=== PATIENT | female | born 2000 | race Caucasian/White ===

== ENCOUNTER 2022-07-04 11:47 | Inpatient (IN) | payer BC, SELFPAY ==
[2022-07-04] VITALS (27 sets, daily range): BP systolic 129–173; BP diastolic 65–101; PULSE 59–99; TEMP 36.6–36.7; O2SAT 97–99; BMI 31.8
[2022-07-04 12:44] LABS: Basophils Absolute Auto 0.02 K/uL (0.00-0.30); Basophils Percent Auto 0.2 % (0.0-3.0); Eosinophils Absolute Auto 0.02 K/uL (0.00-0.50); Eosinophils Percent Auto 0.2 % (0.0-7.0); Hematocrit 32.5 % (33.0-51.0); Hemoglobin* 10.8 gm/dL (12.0-16.0); Immature Granulocytes Abs Auto 0.02 K/uL (0.00-0.30); Immature Granulocytes Pct Auto 0.2 %; Lymphocytes Percent Auto 19.9 % (20-44); Mean Corpuscular HGB Conc 33 gm/dL (32-36); Mean Corpuscular Hemoglobin 30 pg (26-34); Mean Corpuscular Volume 91 fL (80-100); Monocytes Percent Auto 7.6 % (0.0-11.0); Neutrophils Absolute Auto 6.22 K/uL (1.7-7.0); Neutrophils Percent Auto 71.9 % (42.0-72.0); Platelet Count* 180 K/uL (140-440); Red Blood Count 3.58 m/uL (4.00-5.20); Slide Review Reflex No; White Blood Count* 8.66 K/uL (4.50-11.00)
[2022-07-04 13:05] LABS: Creatinine* 0.6 mg/dL (0.5-1.5); Est. Creatinine Clearance* 112.86; Estimated Glomerular Filt Rate 132 ml/min
[2022-07-04 13:06] LABS: Alanine Aminotransferase* 73 U/L (4-35); Aspartate Amino Transferase* 61 U/L (12-35); Blood Urea Nitrogen* 11 mg/dL (5-24); Magnesium* 1.7 mg/dL (1.5-2.6)
[2022-07-04 13:08] LABS: INR 0.99 (0.91-1.10); Prothrombin Time 13.6 Seconds
[2022-07-04 13:09] LABS: Fibrinogen* 495 mg/dL (200-450)
[2022-07-04 13:43] LABS: SARS PCR* Negative SARS-CoV-2 (Negative)
[2022-07-04 14:11] LABS: Creatinine Urine 67.4 mg/dL
[2022-07-04 14:19] LABS: Total Protein Urine 239 mg/dL
[2022-07-04] MEDS: miSOPROStoL 25 MCG/0.25 TABLET VAGINAL ×4 (14:42→23:36)
[2022-07-04] MEDS: LACTATED RINGERS 1000 ML 1,000 ML 75 ML IV (16:44)
[2022-07-04] MEDS: ACETAMINOPHEN 500 MG TABLET 1000 MG PO (17:51)
[2022-07-04 18:38] LABS: Mean Corpuscular HGB Conc 33 gm/dL (32-36); Mean Corpuscular Hemoglobin 30 pg (26-34); Mean Corpuscular Volume 91 fL (80-100); Platelet Count* 188 K/uL (140-440); Red Blood Count 3.62 m/uL (4.00-5.20); White Blood Count* 10.06 K/uL (4.50-11.00)
[2022-07-04 18:40] LABS: Slide Review Reflex No
[2022-07-04 18:53] LABS: Alanine Aminotransferase* 68 U/L (4-35); Aspartate Amino Transferase* 55 U/L (12-35); Blood Urea Nitrogen* 10 mg/dL (5-24); Creatinine* 0.6 mg/dL (0.5-1.5); Est. Creatinine Clearance* 112.86; Estimated Glomerular Filt Rate 132 ml/min
--- NOTE | 2022-07-04 19:14 | P.OBHP_ITS ---
OB - H&P: HPI Labor/Induction History of Present Illness Time Seen by Provider: 19:14 Date Seen: 07/04/22 Chief Complaint: The patient is a 22 year old 2 para 0 at 37w4d gestation by 6wk US not c/w LMP, who was seen in clinic today for routine visit and found to have elevated bp's of 150/110 and 150/106. She was sent to L&D for labs/monitoring and induction. Chief complaint: Maternity : 2 Para: 0 Indications for induction: pre-eclampsia Narrative: Nisha Neves is a 22 year old 2 para 0 at 37w4d gestation by 6wk US not c/w LMP, who was seen in clinic today for routine visit and found to have elevated bp's of 150/110 and 150/106. She did not have headache, vision changes, RUQ pain in clinic. she did report headache yesterday that resolved with water, Tylenol and sleep. OB urine test was +100 protein. She was sent to L&D for labs/monitoring and induction. No ctxs. No bleeding. Good FM. She did not sore throat and cold sxs for last couple weeks, not getting worse. no fevers. No trouble breathing. notes feeling tired. In clinic today, bedside handheld US confirmed cephalic position. Cervix in clinic anterior, closed and thick. History of Present Dating criteria: based on 1st trimester US only care: good care Ultrasounds: normal mid trimester US complications: preeclampsia (diagnosed today) complications comment: +chlamydia 01/17/2022, LENA negative Labs Blood type: O (+) positive Rubella: nonimmune RPR/VDLR: nonreactive GBS status: negative HBsAG: negative Meds Home Medications and Allergies Home Medications Medication Instructions Recorded Confirmed Type Vitamin 07/04/22 History ferrous sulfate 325 mg (65 mg 325 mg PO DAILY 07/04/22 07/04/22 History iron) tablet,delayed release fluticasone propionate 50 2 spray intranasal DAILY 07/04/22 07/04/22 History mcg/actuation nasal spray,suspension OB - H&P: Exam Physical Exam: Vital signs: Temp Pulse BP Pulse Ox 97.9 F 87 137/77 99 07/04/22 15:46 07/04/22 18:28 07/04/22 18:28 07/04/22 19:05 Constitutional: Constitutional: no acute distress and cooperative Routine HEENT Exam: Head: Present normal inspection Eye: Present normal appearance Routine Neck Exam: Neck: Present normal inspection; Absent lymphadenopathy Detailed Neck Exam: Thyroids: Thyroid: Present normal Routine Respiratory Exam: Respiratory: Present CTA bilaterally Routine Cardiovascular Exam: Cardiovascular: RRR Routine Abdominal Exam: Comments: FH c/w dates, nttp Detailed Labor and Delivery Exam: Patient Gravid: Yes Fetus (Single): Heart Rate Baseline: 110 Monitor Accelerations: Present Monitor Decelerations: None Senior [employer] Variability: Moderate (6-25) Routine Extremities Exam: Extremities: Absent pedal edema Routine Psychiatric Exam: Present normal affect OB - Results Labs Labs: Short CBC 07/04/22 07/04/22 Range/Units 12:32 18:33 WBC 8.66 10.06 (4.50-11.00) K/uL Hgb 10.8 L 11.0 L (12.0-16.0) gm/dL Hct 32.5 L 33.0 (33.0-51.0) % Plt Count 180 188 (140-440) K/uL BMP 07/04/22 12:32 BUN 11 Creatinine 0.6 Liver Function 07/04/22 Range/Units 12:32 AST 61 H (12-35) U/L ALT 73 H (4-35) U/L OB - Problem Based A/P Additional Plan (1) Severe preeclampsia: Status: Acute (2) Term : Status: Acute Plan 1. pt meets criteria for severe preeclampsia with BP here 170/101 (repeat BP below IV BP med treatment) and elevated LFT's. started on magnesium. 2. q6hour labs. 3. Discussed in clinic and again here reasons for induction, various methods of induction variation of induction course 4. Cytotec induction per protocol. All ?'s answered. 5. GBS negative. Delivery/Labor/Induction Plan Plan: induction Induction method: per misoprostol protocol
[2022-07-04 19:15] LABS: Magnesium* 4.4 mg/dL (1.5-2.6)
[2022-07-04] MEDS: MORPHINE 10 MG/ML inj IM (23:21)
[2022-07-04] MEDS: hydrOXYzine pamoate 25 MG CAPSULE 100 MG PO (23:21)
[2022-07-05] VITALS (100 sets, daily range): BP systolic 104–177; BP diastolic 60–102; PULSE 56–92; RESP 16–18; TEMP 35.9–36.7; O2SAT 95–100
[2022-07-05 00:30] LABS: Hematocrit 33.1 % (33.0-51.0); Hemoglobin* 10.9 gm/dL (12.0-16.0); Mean Corpuscular HGB Conc 33 gm/dL (32-36); Mean Corpuscular Hemoglobin 30 pg (26-34); Mean Corpuscular Volume 91 fL (80-100); Platelet Count* 190 K/uL (140-440); Red Blood Count 3.62 m/uL (4.00-5.20); White Blood Count* 10.18 K/uL (4.50-11.00)
[2022-07-05 00:34] LABS: Slide Review Reflex No
[2022-07-05 00:47] LABS: INR 0.94 (0.91-1.10); Prothrombin Time 13.2 Seconds
[2022-07-05 00:48] LABS: Aspartate Amino Transferase* 53 U/L (12-35); Blood Urea Nitrogen* 10 mg/dL (5-24); Creatinine* 0.6 mg/dL (0.5-1.5); Est. Creatinine Clearance* 112.86; Estimated Glomerular Filt Rate 132 ml/min; Fibrinogen* 493 mg/dL (200-450)
[2022-07-05 00:49] LABS: Alanine Aminotransferase* 69 U/L (4-35)
[2022-07-05] MEDS: miSOPROStoL 25 MCG/0.25 TABLET VAGINAL (02:36)
[2022-07-05] MEDS: LACTATED RINGERS 1000 ML 1,000 ML 250 ML IV (04:10)
[2022-07-05] MEDS: ONDANSETRON 2 MG/ML inj 4 MG IV (06:03)
[2022-07-05 07:07] LABS: Hematocrit 34.8 % (33.0-51.0); Hemoglobin* 11.5 gm/dL (12.0-16.0); Mean Corpuscular HGB Conc 33 gm/dL (32-36); Mean Corpuscular Hemoglobin 30 pg (26-34); Mean Corpuscular Volume 91 fL (80-100); Platelet Count* 189 K/uL (140-440); Red Blood Count 3.83 m/uL (4.00-5.20); White Blood Count* 12.36 K/uL (4.50-11.00)
[2022-07-05 07:18] LABS: INR 0.93 (0.91-1.10)
[2022-07-05 07:19] LABS: Fibrinogen* 495 mg/dL (200-450)
[2022-07-05 07:22] LABS: Slide Review Reflex No
[2022-07-05 07:28] LABS: Creatinine* 0.6 mg/dL (0.5-1.5); Est. Creatinine Clearance* 112.86; Estimated Glomerular Filt Rate 132 ml/min
[2022-07-05 07:29] LABS: Alanine Aminotransferase* 65 U/L (4-35); Aspartate Amino Transferase* 57 U/L (12-35); Blood Urea Nitrogen* 9 mg/dL (5-24)
[2022-07-05 07:48] LABS: Magnesium* 6.3 mg/dL (1.5-2.6)
[2022-07-05] MEDS: LACTATED RINGERS 1000 ML 1,000 ML 75 ML IV (09:01)
--- NOTE | 2022-07-05 10:40 | P.OBCN_ITS ---
OB - CN: HPI Date of Consult Date Seen: 07/05/22 Patient: Viet Patient Consult date: 07/05/22 Requesting Physician: Gabrielle Lange DO Primary Care Provider: Gabrielle Lange DO Consult Narrative Narrative: The patient is a 22 year old G 2 P 0 woman at 37 weeks, 5 days gestation that was admitted to the Center on 07/04/22 for induction of labor for severe preeclampsia. BP was markedly elevated once in clinic, and apparently at least once here on Center. In addition, ALT was twice the upper limit of normal. She has marked proteinuria on protein:creatinine. She was started on magnesium sulfate for seizure prophylaxis at around 3 PM yesterday. BPs have been stable / below severe range in recent history. HR baseline has been low since admission, ranging from 120 to 90 bpm. At the time of my consult at 7:30 AM, it was 95 bpm with moderate variability. Variability has ranged from moderate to minimal while on magnesium. At the time of my evaluation, heart rate is exhibiting accelerations. Decelerations have been absent. Other than severe preeclampsia, Nisha has had an uncomplicated . She is rubella non-immune. She has had a total of 5 doses of vaginal Cytotec for cervical ripening. Despite this, her cervix is closed and long. History of Present complications: preeclampsia (diagnosed today) complications comment: +chlamydia 01/17/2022, LENA negative History History 2 Elective abortions Para 0 Spontaneous abortions 1 Hx # Term Pregnancies Ectopic pregnancies Hx # Pregnancies Multiple births Number of Living Children 0 Labs Blood type: O (+) positive Rubella: nonimmune RPR/VDLR: nonreactive GBS status: negative HBsAG: negative OB Labs: Lab Assessment Start: 07/04/22 11:54 Freq: ONCE Status: Complete Protocol: PC.OBGBS Activity Type Activity Date Activity User E-sign Co-sign Detail Recorded Client Recorded Date Recorded By Document 07/04/22 12:00 [facility] [id number] 07/04/22 16:01 [facility] 07/04/22 12:00 Lab Assessment GBS neg Previous with Invasive GBS No Does Patient Meet Criteria No No Treatment Needed OK Maternal Blood Type O Maternal RH Factor Positive Evaluate Maternal Rubella Immune Status Non-Immune Hepatitis B Surface Antigen Negative Maternal HIV Status Negative Maternal Syphillis (RPR) Status Negative Are Labs Available Yes PFSH [facility] Medical History (Updated 07/04/22 @ 19:37 by Gabrielle Lange, DO) ADHD ?F90.9 - Attention-deficit hyperactivity disorder, unspecified type (ICD-10) Anxiety and depression ?F41.9 - Anxiety disorder, unspecified (ICD-10) ?F32.A - Depression, unspecified (ICD-10) Surgical History (Updated 07/04/22 @ 19:30 by Gabrielle Lange, ) No pertinent past surgical history ?Z78.9 - Other specified health status (ICD-10) Social History Smoking Status: Former smoker Meds Home Medications and Allergies Home Medications Medication Instructions Recorded Confirmed Type Vitamin 07/04/22 History ferrous sulfate 325 mg (65 mg 325 mg PO DAILY 07/04/22 07/05/22 History iron) tablet,delayed release fluticasone propionate 50 2 spray intranasal DAILY 07/04/22 07/05/22 History mcg/actuation nasal spray,suspension Allergies Allergy/AdvReac Type Severity Reaction Status Date / Time Penicillins Allergy Verified 07/05/22 00:21 Amoxicillin Allergy Uncoded 07/05/22 00:21 OB - H&P: Exam Physical Exam: Vital signs: Temp Pulse Resp BP Pulse Ox 98.1 F 76 16 147/81 H 99 07/05/22 10:24 07/05/22 10:39 07/05/22 10:24 07/05/22 10:39 07/05/22 10:39 Narrative: Physical exam: Vitals as noted above. General: No acute distress Psych: Alert and oriented x 3, full affect HEENT: Normocephalic, atraumatic Abdomen: Soft, nontender, gravid, cephalic lie OB - Results Labs Labs: Short CBC 07/04/22 07/04/22 07/05/22 Range/Units 12:32 18:33 00:25 WBC 8.66 10.06 10.18 (4.50-11.00) K/uL Hgb 10.8 L 11.0 L 10.9 L (12.0-16.0) gm/dL Hct 32.5 L 33.0 33.1 (33.0-51.0) % Plt Count 180 188 190 (140-440) K/uL 07/05/22 Range/Units 06:45 WBC 12.36 H (4.50-11.00) K/uL Hgb 11.5 L (12.0-16.0) gm/dL Hct 34.8 (33.0-51.0) % Plt Count 189 (140-440) K/uL BMP 07/04/22 07/04/22 07/05/22 12:32 18:33 00:25 BUN 11 10 10 Creatinine 0.6 0.6 0.6 07/05/22 06:45 BUN 9 Creatinine 0.6 Liver Function 07/04/22 07/04/22 07/05/22 Range/Units 12:32 18:33 00:25 AST 61 H 55 H 53 H (12-35) U/L ALT 73 H 68 H 69 H (4-35) U/L 07/05/22 Range/Units 06:45 AST 57 H (12-35) U/L ALT 65 H (4-35) U/L OB - CN: A/P Assessment and Plan (1) Severe preeclampsia: Status: Acute (2) Term : Status: Acute Plan Failed induction of labor. baseline low at initiation of induction, with periods of nonreassuring status. Severe preeclampsia, remote from delivery. Given these factors, I have very recommended primary low transverse delivery. Patient accepts this plan. We discussed risks of procedure, including bleeding and hemorrhage, infection, damage to internal organs, and effects on future pregnancies. Consent form was reviewed with and signed by patient. She will have cefazolin and azithromycin for preoperative prophylaxis. She will have magnesium continued for 24 hours . I will be quick to treat for uterine atony with misoprostol or Hemabate, and will consider prophylactic tranexamic acid as well.
[2022-07-05] MEDS: CEFAZOLIN 2 GM INJ IVP (11:11)
[2022-07-05] MEDS: AZITHROMYCIN 500 MG in 0.9 % SODIUM CHLORIDE 250 ml 250 ML 255 MG IVPB (11:56)
[2022-07-05] MEDS: KETOROLAC 30 MG/ML inj IVP ×2 (12:40→18:46)
--- NOTE | 2022-07-05 12:53 | W.ANESCHARGE ---
Anesthesia Charges Start Date/Time Anesthesia Start Date: 07/05/22 Anesthesia Start Time: 11:01 Stop Date/Time Anesthesia Stop Date: 07/05/22 Anesthesia Stop Time: 12:35
--- NOTE | 2022-07-05 12:54 | W.PM.NB ---
Nerve Block Nerve Block Time Seen by Provider: 12:25 Date Seen: 07/05/22 Type of block requested by surgeon for post-operative analgesia: TAP Side: bilateral Time out performed: Yes Verification of patient name: Yes Verification of date of : Yes Site marking: site marked Name of person performing procedure: Matthew Solis Continuous monitoring Was continuous monitoring of O2 sat, B/P, media monitor, recorded every 15 minutes?: Yes Procedure Checklist: sterile prep, needles and gloves Ultrasound guided. Images saved: Yes Medications given in 5ml increments after negative aspiration: Marcaine %: 0.25 mL: 30 Needle gauge: 20 and Exparel mL: 10 Needle gauge: 20 Patient tolerated procedure well: Yes
[2022-07-05 13:45] LABS: Hematocrit 31.6 % (33.0-51.0); Hemoglobin* 10.6 gm/dL (12.0-16.0); Mean Corpuscular HGB Conc 34 gm/dL (32-36); Mean Corpuscular Hemoglobin 31 pg (26-34); Mean Corpuscular Volume 91 fL (80-100); Platelet Count* 183 K/uL (140-440); Red Blood Count 3.47 m/uL (4.00-5.20); White Blood Count* 17.17 K/uL (4.50-11.00)
[2022-07-05 13:49] LABS: Slide Review Reflex No
[2022-07-05 13:50] LABS: Fibrinogen* 443 mg/dL (200-450); INR 0.96 (0.91-1.10); Prothrombin Time 13.3 Seconds
[2022-07-05 13:52] LABS: Alanine Aminotransferase* 59 U/L (4-35); Aspartate Amino Transferase* 52 U/L (12-35); Blood Urea Nitrogen* 8 mg/dL (5-24); Creatinine* 0.6 mg/dL (0.5-1.5); Est. Creatinine Clearance* 112.86; Estimated Glomerular Filt Rate 132 ml/min
--- NOTE | 2022-07-05 14:32 | PM.OBPRCCS ---
Procedure Pre-op/Post-op diagnoses: Pre-Op/Post-Op Diagnoses Operation Date: 07/05/22 10:30 <No data on this case meets the specified criteria> Procedure Done: only Procedure Details: Procedures Operation Date: 07/05/22 10:30 Actual Procedure Side Surgeon p Section Holly Bajwa MD Narrative: PREOPERATIVE DIAGNOSIS: 37 weeks, 5 days gestation Severe preeclampsia Failed induction of labor Nonreassuring heart tracing, remote from delivery POSTOPERATIVE DIAGNOSIS: Same PROCEDURE: Primary low-transverse section SURGEON: Holly Bajwa MD ANESTHESIA: Spinal IV FLUIDS: 1500 mL crystalloid QBL: 447 mL FINDINGS: 1. Male infant, cephalic OA presentation, Apgars of 8 and 9, weight appropriate for gestational age 2. Normal appearance to uterus, bilateral tubes and ovaries. COMPLICATIONS: None PROCEDURE IN DETAIL: Patient was taken to the operating room with IV running. She received cefazolin and azithromycin in preoperative prophylaxis. Spinal anesthesia was administered. Marino catheter was inserted. She was prepped and draped in the usual sterile fashion. A low-transverse skin incision was made with a scalpel and carried through to the underlying layer of fascia with the scalpel. The fascia was nicked in the midline with a scalpel, and this incision was extended laterally with scissors. The rectus muscles were in the midline. Peritoneum was identified and entered bluntly. Bovie was used to widen this opening. Harsh O retractor was inserted and tightened down, providing excellent visualization of the lower uterine segment. The bladder reflection was found to be well below the planned site for hysterotomy. Low-transverse uterine incision was made with a scalpel. Incision was widened bluntly. The 's head was grasped through the hysterotomy. After several attempts to deliver the 's head, the Harsh O retractor was removed, and delivery of the head was then accomplished. The remainder of the body delivered without incident. Cord was clamped and cut after 30 seconds. was handed off to attending nurses and Dr. Cox. The placenta was delivered with gentle traction on the cord. The uterus was cleaned of all clots and debris with the dry lap pad. The uterus was exteriorized. The hysterotomy was reapproximated with 0 Vicryl in a running, locked fashion. Second layer of the same suture was used in imbricating fashion to obtain hemostasis. The adnexa were examined and noted to be normal in appearance. The uterus was returned to the abdomen. The cul-de-sac and gutters were cleansed with dampened laparotomy sponge, removing any further clots and debris. The hysterotomy was reexamined and found to be hemostatic. The peritoneum was reapproximated with 2 0 Vicryl in a running fashion. The rectus muscles were examined and found to be hemostatic. The fascia was reapproximated with 0 Vicryl in a running fashion. Subcutaneous fat was irrigated and Bovie used on oozing vessels. The subcutaneous fat was reapproximated with 2 0 plain gut suture in an interrupted fashion. The skin was closed with a subcuticular stitch of 4-0 Monocryl. Surgical glue was applied above this. Patient tolerated procedure well was taken to recovery area in stable condition.
[2022-07-05] MEDS: ACETAMINOPHEN 500 MG TABLET 1000 MG PO (17:28)
[2022-07-05] MEDS: diphenhydrAMINE 50 MG/ML inj 12.5 MG IVP (17:31)
[2022-07-05 19:44] LABS: Hematocrit 27.1 % (33.0-51.0); Hemoglobin* 9.1 gm/dL (12.0-16.0); Mean Corpuscular HGB Conc 34 gm/dL (32-36); Mean Corpuscular Hemoglobin 31 pg (26-34); Mean Corpuscular Volume 92 fL (80-100); Platelet Count* 165 K/uL (140-440); Red Blood Count 2.95 m/uL (4.00-5.20); White Blood Count* 14.36 K/uL (4.50-11.00)
[2022-07-05 19:46] LABS: Slide Review Reflex No
[2022-07-05 19:59] LABS: Alanine Aminotransferase* 49 U/L (4-35); Aspartate Amino Transferase* 50 U/L (12-35); Blood Urea Nitrogen* 8 mg/dL (5-24); Creatinine* 0.7 mg/dL (0.5-1.5); Est. Creatinine Clearance* 96.74; Estimated Glomerular Filt Rate 127 ml/min
--- NOTE | 2022-07-05 20:14 | P.OBPN_ITS ---
Subjective Time Seen by Provider: 20:14 Date Seen: 07/05/22 Objective Vital Signs: Last Vital Signs Temp 97.4 F L 07/05/22 16:45 Pulse 79 07/05/22 16:45 Resp 16 07/05/22 17:00 BP 125/85 07/05/22 16:45 Pulse Ox 97 07/05/22 16:45 O2 Del Method Room Air 07/05/22 16:45 Pelvic Exam Dilation (cm): 0 Effacement (%): 0 Contractions Monitor mode: External Contraction Frequency: irregular Contraction pattern: Irregular Contraction intensity: Mild Assessment Assessment: induction ongoing Station: -3 Heart Rate Baseline: 90 Penitentiary Variability: Minimal (3-5) Monitor Accelerations: Present Monitor Decelerations: None Labor Progress: Patient received cytotec overnight. Unfortunately, made no cervical change (closed, thick, high). Cervidil was not available in hospital and I was unable to place cook catheter given cervix closed. heart tones had low baseline throughout IOL (90-110). Unfortunately, we lost variability after Magnesium, morphine, vistaril. FHT had occasional accels. Magnesium level checked and appropriate. Plan Plan: - Discussed patient's case with Dr. Bajwa. She agrees heart tracing not reassuring enough to continue (and limited induction options given no cervidil in house and unable to place cook catheter). Will proceed with . Please see Dr. Bajwa's consult and procedure note for details.
[2022-07-06] VITALS (11 sets, daily range): BP systolic 116–136; BP diastolic 71–84; PULSE 59–74; RESP 16; TEMP 36.6–36.9; O2SAT 95–98
[2022-07-06] MEDS: KETOROLAC 30 MG/ML inj IVP ×4 (00:39→19:08)
[2022-07-06 01:41] LABS: Hematocrit 26.8 % (33.0-51.0); Mean Corpuscular HGB Conc 34 gm/dL (32-36); Mean Corpuscular Hemoglobin 31 pg (26-34); Mean Corpuscular Volume 91 fL (80-100); Platelet Count* 164 K/uL (140-440); Red Blood Count 2.94 m/uL (4.00-5.20); White Blood Count* 10.67 K/uL (4.50-11.00)
[2022-07-06 01:42] LABS: Slide Review Reflex No
[2022-07-06 01:59] LABS: Alanine Aminotransferase* 48 U/L (4-35); Aspartate Amino Transferase* 47 U/L (12-35); Blood Urea Nitrogen* 7 mg/dL (5-24); Creatinine* 0.7 mg/dL (0.5-1.5); Est. Creatinine Clearance* 96.74; Estimated Glomerular Filt Rate 127 ml/min
[2022-07-06 07:51] LABS: Mean Corpuscular HGB Conc 33 gm/dL (32-36); Mean Corpuscular Hemoglobin 30 pg (26-34); Mean Corpuscular Volume 91 fL (80-100); Platelet Count* 173 K/uL (140-440); Red Blood Count 2.96 m/uL (4.00-5.20); White Blood Count* 9.88 K/uL (4.50-11.00)
[2022-07-06 08:07] LABS: Alanine Aminotransferase* 45 U/L (4-35); Aspartate Amino Transferase* 48 U/L (12-35); Blood Urea Nitrogen* 8 mg/dL (5-24); Creatinine* 0.8 mg/dL (0.5-1.5); Est. Creatinine Clearance* 84.65; Estimated Glomerular Filt Rate 108 ml/min
[2022-07-06 08:18] LABS: Slide Review Reflex No
[2022-07-06] MEDS: ACETAMINOPHEN 500 MG TABLET 1000 MG PO ×2 (09:28→15:46)
[2022-07-06] MEDS: FERROUS SULFATE 325 MG TABLET PO (09:28)
--- NOTE | 2022-07-06 09:43 | PM.OBPNCS1 ---
OB - PN: A/P Assessment and Plan (1) Severe preeclampsia: Problem details: Labs improving Status: Acute (2) Status post primary low transverse section: Status: Acute Plan 1. Will recheck labs tomorrow morning. 2. Mag to be discontinued later this morning. 3. Continue close monitoring of BP. 4. Stop fluid restriction. Plan day: 1 Plan: routine postop care OB - PN: Subj Subjective Date Seen: 07/06/22 Interval history: The patient is feeling little better this morning. She had been dizzy when trying to sit up earlier this morning, and this caused her to feel somewhat nauseous. She has incisional pain only when she is trying to move around. Lochia is normal. Magnesium sulfate infusion is due to come off at about 11:30 this morning. OB - PN: Obj Exam Physical Exam: Vital signs: Temp Pulse Resp BP Pulse Ox O2 Del Method 98.1 F 62 16 133/82 96 Room Air 07/06/22 04:49 07/06/22 04:49 07/06/22 09:00 07/06/22 04:49 07/06/22 04:49 07/06/22 04:49 Constitutional: Constitutional: no acute distress Routine HEENT Exam: Head: Present normal inspection Routine Respiratory Exam: Respiratory: Absent respiratory distress Routine Cardiovascular Exam: Cardiovascular: Present RRR Routine Abdominal Exam: Abdominal: Present soft; Absent tenderness Fundus: Present firm Comments: Incision clean, dry, intact. Routine Extremities Exam: Extremities: Present normal inspection Routine Neurological Exam: Neurological: Present alert and oriented X3 Routine Psychiatric Exam: Psychiatric: Present normal affect Urinary Catheter Management: Urethral: Cath placed during this visit: yes Urethral indwelling: Yes Reason for continuing: surgical procedure Insertion date: 07/05/22 Insertion time: 11:20 OB - PN: Obj Data Labs Labs: Laboratory Results - last 24 hr 07/05/22 07/05/22 07/06/22 13:25 19:39 01:35 WBC 17.17 H 14.36 H 10.67 RBC 3.47 L 2.95 L 2.94 L Hgb 10.6 L 9.1 L 9.0 L Hct 31.6 L 27.1 L 26.8 L MCV 91 92 91 MCH 31 31 31 MCHC 34 34 34 Plt Count 183 165 164 INR 0.96 Fibrinogen 443 BUN 8 8 7 Creatinine 0.6 0.7 0.7 Estimated Creat Clear 112.86 96.74 96.74 Estimated GFR 132 127 127 AST 52 H 50 H 47 H ALT 59 H 49 H 48 H 07/06/22 07:20 WBC 9.88 RBC 2.96 L Hgb 9.0 L Hct 27.0 L MCV 91 MCH 30 MCHC 33 Plt Count 173 INR Fibrinogen BUN 8 Creatinine 0.8 Estimated Creat Clear 84.65 Estimated GFR 108 AST 48 H ALT 45 H
[2022-07-06] MEDS: OXYCODONE 5 MG TABLET PO ×2 (11:27→21:31)
[2022-07-06] MEDS: SIMETHICONE 80 MG TAB.CHEW PO (11:33)
[2022-07-07 04:38] VITALS: BP 135/84; PULSE 70; RESP 16; TEMP 36.9; O2SAT 97
[2022-07-07] MEDS: MEASLES,MUMPS,RUBELLA VACC/PF 1 DOSE INJ 1 EACH SUBCUT (05:50)
[2022-07-07 07:33] LABS: Hematocrit 27.8 % (33.0-51.0); Hemoglobin* 9.2 gm/dL (12.0-16.0); Mean Corpuscular HGB Conc 33 gm/dL (32-36); Mean Corpuscular Hemoglobin 31 pg (26-34); Mean Corpuscular Volume 92 fL (80-100); Platelet Count* 187 K/uL (140-440); Red Blood Count 3.01 m/uL (4.00-5.20); Slide Review Reflex No
[2022-07-07 07:53] LABS: Aspartate Amino Transferase* 39 U/L (12-35); Creatinine* 0.7 mg/dL (0.5-1.5); Est. Creatinine Clearance* 96.74; Estimated Glomerular Filt Rate 127 ml/min
[2022-07-07 07:54] LABS: Alanine Aminotransferase* 37 U/L (4-35); Blood Urea Nitrogen* 10 mg/dL (5-24)
[2022-07-07] MEDS: ACETAMINOPHEN 500 MG TABLET 1000 MG PO ×2 (08:31→14:32)
[2022-07-07] MEDS: FERROUS SULFATE 325 MG TABLET PO (08:32)
[2022-07-07 09:15] VITALS: BP 129/68; PULSE 55; RESP 16; TEMP 36.8; O2SAT 97
--- NOTE | 2022-07-07 10:29 | P.OBPN_ITS ---
OB - PN: A/P Assessment and Plan (1) Severe preeclampsia: Problem details: Labs improving Status: Acute (2) Status post primary low transverse section: Status: Acute Plan day: 2 Plan: routine postop care Comments: 1. I anticipate that the patient will be ready for discharge tomorrow. We discussed activity restrictions and follow-up. 2. Continue close observation of blood pressures today. 3. Labs have almost return to normal, very mild elevation in ALT and AST yet today. Will stop following labs. OB - PN: Subj Subjective Date Seen: 07/07/22 Interval history: The patient feels better this morning. She is having a little more soreness in abdomen with moving around, but is not in pain while lying still. She is no longer dizzy or nauseous. She is bottle feeding, and has noticed a little bit of breast fullness this morning. Patient comments: flatus present [place] infant status: bottle OB - PN: Obj Exam Physical Exam: Vital signs: Temp Pulse Resp BP Pulse Ox O2 Del Method 98.2 F 55 L 16 129/68 97 Room Air 07/07/22 09:15 07/07/22 09:15 07/07/22 09:15 07/07/22 09:15 07/07/22 09:15 07/07/22 09:15 Constitutional: Constitutional: no acute distress Routine Abdominal Exam: Abdominal: Present soft; Absent tenderness Fundus: Present firm Routine Extremities Exam: Extremities: Present normal inspection and pedal edema; Absent calf tenderness Routine Neurological Exam: Neurological: Present alert and oriented X3 Routine Psychiatric Exam: Psychiatric: Present normal affect Wound Management: Method: suture Examination: Present clean, dry and intact; Absent erythematous Comments: Pfannenstiel incision Urinary Catheter Management: Urethral: Cath placed during this visit: yes, but has since been removed by the nurse Urethral indwelling: Yes Reason for continuing: surgical procedure Insertion date: 07/05/22 Insertion time: 11:20 Removal date: 07/06/22 Removal time: 14:35 OB - PN: Obj Data Labs Labs: Laboratory Results - last 24 hr 07/07/22 07:10 WBC 11.30 H RBC 3.01 L Hgb 9.2 L Hct 27.8 L MCV 92 MCH 31 MCHC 33 Plt Count 187 BUN 10 Creatinine 0.7 Estimated Creat Clear 96.74 Estimated GFR 127 AST 39 H ALT 37 H
[2022-07-07 12:50] VITALS: BP 128/84; PULSE 69; RESP 16; TEMP 36.9; O2SAT 96
[2022-07-07 16:15] VITALS: BP 117/72; PULSE 66; RESP 16; TEMP 36.8; O2SAT 95
[2022-07-07] MEDS: IBUPROFEN 600 MG TABLET PO (17:41)
[2022-07-07 21:16] VITALS: BP 138/80
[2022-07-08 00:07] VITALS: BP 84/47; PULSE 79; RESP 16; TEMP 36.7; O2SAT 95
[2022-07-08 00:17] VITALS: BP 112/62
[2022-07-08] MEDS: ACETAMINOPHEN 500 MG TABLET 1000 MG PO (01:35)
[2022-07-08 04:05] VITALS: BP 110/72
--- NOTE | 2022-07-08 07:30 | PM.OBDSCS1 ---
DS: Providers Provider Time Seen by Provider: 07:30 Date Seen: 07/08/22 Date of admission: 07/04/22 11:47 Primary care physician: Gabrielle Lange DO Admitting Clinician: Holly Bajwa MD Consults: 07/07/22 07:33 Consult to [employer] [CONS] Routine Comment: Reason for Consult:: Social Service Consult Attending Physician on discharge: Holly Bajwa MD Date of Discharge: 07/08/22 DS: Diagnosis Discharge Diagnosis (1) Status post primary low transverse section: Status: Acute (2) Severe preeclampsia: Status: Acute Problem details: Labs improving Exam Narrative: Exam Narrative: VSS. ?Afebrile GENERAL APPEARANCE: ?normal affect, alert, no distress MOOD: ?appropriate HEENT: normocephalic, neck supple, full ROM CHEST: ?Symmetrical chest wall movement. ?Normal respiratory effort. ?Clear to auscultation HEART: ?regular rate and rhythm ABDOMEN: ?soft, non-tender. Uterine fundus is firm, 3 below Umbilicus, Midline and is appropriate for the stage of recovery. ?Bowel sounds present. EXTREMITIES: ?normal and trace edema SKIN: warm, dry. ? ?Incision clean/dry/well approximated. ?No signs of infection noted. Const: Vital Signs, click to edit/add: Vital Signs - 24 hr 07/07/22 09:15 07/07/22 12:50 07/07/22 16:15 Temperature 98.2 F 98.5 F 98.2 F Pulse Rate [Pulse Oximeter] 55 L 69 66 Respiratory Rate 16 16 16 Blood Pressure [Le ft Arm] 129/68 128/84 117/72 Pulse Oximetry 97 96 95 Oxygen Delivery Me thod Room Air Room Air Room Air 07/07/22 21:16 07/08/22 00:07 07/08/22 00:17 Temperature 98.1 F Pulse Rate [Pulse Oximeter] 79 Respiratory Rate 16 Blood Pressure [Le ft Arm] 138/80 84/47 L 112/62 Pulse Oximetry 95 Oxygen Delivery Me thod Room Air 07/08/22 04:05 Temperature Pulse Rate [Pulse Oximeter] Respiratory Rate Blood Pressure [Le ft Arm] 110/72 Pulse Oximetry Oxygen Delivery Me thod DS: Data Data Completed and Pending Labs on day of discharge: Labs from last 24 hours 07/07/22 07:10 WBC 11.30 H RBC 3.01 L Hgb 9.2 L Hct 27.8 L MCV 92 MCH 31 MCHC 33 Plt Count 187 BUN 10 Creatinine 0.7 Estimated Creat Clear 96.74 Estimated GFR 127 AST 39 H ALT 37 H OB - DS: Summary Hospital Course Hospital Course: Nisha is a 22 y.o. G 2 P 1 who was admitted to [facility] for severe preeclampsia. ?She had an after a failed induction for severe pre-e that required magnesium sulfate. ? The patient feels well. ?The pain is well controlled with current medications. ?She has no new complaints. ?She is bottle feeding and reports things are going well.? the patient has done well.? Vitals have been stable.? She has remained afebrile.? Has a good appetite, is tolerating a general diet. ?She is voiding without difficulty.? She is passing gas and has not had a bowel movement.? She is ambulating and denies any dizziness.? Has Small amount of rubra lochia. Problems: Severe preeclampsia, BPs now WNL. Not currently on any medication. plan: Discharge home with baby. Follow up in 3-5 days for a blood pressure check, 2 weeks and 6 weeks. Acute anemia, continue iron supplementation for 6 weeks A social work consult was already placed for this AM to confirm she has the supplies, support and education needed at home to care for the . Hx of mental health problems per previous records per RN. Pt states at this time she feels mentally that she is doing well. Peripartum Data Procedures: Procedures Operation Date: 07/05/22 10:30 Actual Procedure Side Surgeon p Section Holly Bajwa MD complications: none [place] Infant Gender: Male Discharge Plan: Home Status at Discharge Functional status at discharge: independent ambulation Overall status at discharge: patient is progressing back to baseline Time Spent with Patient Time attestation: Total time spent providing and/or coordinating discharge services: Time spent: Less than 30 minutes Discharge Plan Discharge Disposition: Home, Self-Care Date of Admission: 07/04/22 11:47 Attending Provider on Discharge: Huyen Carter Primary Care Provider: Gabrielle Lange Condition: Stable Anticipated Discharge Date/Time: 07/08/22 12:00 Discharge Medications: New docusate sodium 100 mg Capsule 100 mg PO BID PRNQty: 100 0RF Rx Instructions: Take 1 cap 1-2 times a day as needed for constipation ibuprofen 600 mg Tablet 600 mg PO Q6H PRN (Reason: Pain) Qty: 60 0RF oxycodone 5 mg Tablet 5 - 10 mg PO Q4H PRN (Reason: Pain) Qty: 20 0RF Continued ferrous sulfate 325 mg (65 mg iron) tablet,delayed release (DR/EC) 325 mg PO DAILY fluticasone propionate 50 mcg/actuation spray,suspension 2 spray INTRANASAL DAILY Vitamin Discharge Orders: Discharge Order (Routine); Ordered 07/08/22 Ordered By: Huyen Carter Patient Education: OB Over the Counter Medication Information, OB /Bottle Feeding Additional Instructions: Follow up in 3-5 days for a blood pressure check. Can be a nurse visit. Follow up in 2 weeks for an incision check and 2 week visit. Follow up in 6 weeks for a exam. Activity Level: Activity as Tolerated Discharge Diet: Regular Follow Up Appointments: Gabrielle Lange DO [Primary Care Provider] - Forms: MyHealth Info Instructions
[2022-07-08 08:00] VITALS: BP 136/93; PULSE 78; RESP 16; O2SAT 98
[2022-07-08] MEDS: FERROUS SULFATE 325 MG TABLET PO (09:02)
[2022-07-08] MEDS: IBUPROFEN 600 MG TABLET PO (09:05)
[2022-07-08] MEDS: DOCUSATE SODIUM 100 MG CAPSULE PO (09:50)
--- NOTE | 2022-07-08 13:25 | PC.SOCIAL ---
Made a phone call to [facility] and left a voicemail inquiring on if they can assist with formula prior to an appointment if needed. Met with pt in pt's room. Discussed and provided resources for [facility], [facility] financial assistance, [employer] in pt's area, and to five program in [facility]. Pt states that she has assistance from her mother and believes she will have enough resources to get formula for the baby until her appointment with [facility] on . Discussed what all of the resources provided could assist pt and her family with. Discussed home situation. Pt disclosed that she lives with the babies father in their own home. Babies father has not been in the hospital 100% of the time due to just starting a new job recently and being unable to miss orientation. Pt discussed that her mother will be coming to her home today to assist with providing care to the baby and pt's recovery from giving . Informed pt that if she has any questions after discharge she is welcome to reach out to the social work department for assistance with referrals for resources and services. Social work will follow up as necessary.
== END 2022-07-08 13:38 | disposition home or self-care (01) | DRG 540 ==
PROVIDERS: Obstetrics & Gynecology; Admitting Provider Obstetrics & Gynecology; PCP Family Medicine; Visit Provider Obstetrics & Gynecology
PROC: 10D00Z1 Extraction of Products of Conception, Low, Open Approach (ICD-10-PCS; CPT 59514; principal; 2022-07-05 10:15)
DX: O14.14 Severe pre-eclampsia complicating childbirth (principal); O61.0 Failed medical induction of labor; O76 Abnormality in fetal heart rate and rhythm complicating labor and delivery; O99.344 Other mental disorders complicating childbirth; F32.A Depression, unspecified; F41.9 Anxiety disorder, unspecified; F90.9 Attention-deficit hyperactivity disorder, unspecified type; Z3A.37 37 weeks gestation of pregnancy; Z37.0 Single live birth; O90.81 Anemia of the puerperium; D62 Acute posthemorrhagic anemia
CPT/HCPCS: 01961; 36415; 76815; 82565; 82570; 83735; 84156; 84450; 84460; 84520; 85025; 85027; 85384; 85610; 86850; 86900; 86901; 87635; 88307; A9270; C9290; J0456; J0690; J1200; J1885; J2270; J2274; J2405; J2590; J3475; J3490; J7050; J7120